=== PATIENT | female | born 1960 | race Caucasian/White ===

== ENCOUNTER → 2023-07-25 14:22 | Outpatient (BNVA) | payer MEDICAID, SELFPAY | PROVIDERS: Referring Provider Nurse Practitioner Family; Visit Provider Nurse Practitioner | DX: M19.012 Primary osteoarthritis, left shoulder; M62.838 Other muscle spasm | CPT/HCPCS: 20610; 73030; 99204; J1100; J2795; J3301 ==

== ENCOUNTER → 2023-09-10 14:36 | Outpatient (BNVA) | payer MEDICAID, SELFPAY | PROVIDERS: Visit Provider Specialist | DX: M25.512 Pain in left shoulder (principal) | CPT/HCPCS: 99214 ==